=== PATIENT | female | born 1965 | race African-American/Black ===

== ENCOUNTER → 2016-09-06 | Outpatient (CLI) | payer BC ==
[2016-09-06 14:53] LABS: Basophils % (A) 1 %; CH 30.5; CHCM 32.5; Eosinophils # (A) 0.2 k/uL (0-0.7); Eosinophils % (A) 3 %; HCT 42.1 % (34.0-46.0); HDW 2.25; HGB 13.3 gm/dL (11.4-16.0); Luc # (Auto) 0.14; Luc % (Auto) 2; Lymphocytes # (A) 1.7 k/uL (1.0-4.8); Lymphocytes % (A) 26 %; MCH 29.8 pg (25.0-35.0); MCHC 31.7 g/dL (31.0-37.0); MCV 94.1 fL (80.0-100.0); Mean Platelet Volume 8.4; Monocytes # (A) 0.3 k/uL (0-1.0); Monocytes % (A) 5 %; Neutrophils # (A) 4.1 k/uL (1.3-7.7); Neutrophils % (A) 64 %; RBC 4.47 m/uL (3.80-5.40); RDW 13.3 % (11.5-15.5); WBC 6.4 k/uL (3.8-10.6); WBC (Perox) 6.69
[2016-09-06 15:02] LABS: ALT 39 U/L (9-52); AST 17 U/L (14-36); Alkaline Phosphatase 115 U/L (38-126); Anion Gap 8 mmol/L; Blood Urea Nitrogen 11 mg/dL (7-17); Calcium 9.7 mg/dL (8.4-10.2); Carbon Dioxide 31 mmol/L (22-30); Chloride 102 mmol/L (98-107); Glucose 106 mg/dL (74-99); Non-African American GFR(MDRD) >60 (>60 ml/min/1.73 sqM); Potassium 3.6 mmol/L (3.5-5.1); Sodium 141 mmol/L (137-145); Total Bilirubin 0.4 mg/dL (0.2-1.3); Total Protein 7.4 g/dL (6.3-8.2)
== END | disposition home or self-care (01) ==
LOC: LABPAT 14:24
PROVIDERS: ATTEND Obstetrics & Gynecology
DX: Z01.812 Encounter for preprocedural laboratory examination (principal)
CPT/HCPCS: 80053; 85025; 86850; 86900; 86901

== ENCOUNTER → 2016-09-06 | Outpatient (CLI) | payer BC ==
--- NOTE | 2016-09-06 14:23 | XR ---
EXAMINATION TYPE: XR chest 2V DATE OF EXAM: 09/06/2016 2:19 PM COMPARISON: NONE HISTORY: Shortness of breath TECHNIQUE: Frontal and lateral views of the chest are obtained. FINDINGS: Scattered senescent parenchymal changes noted. Hyperinflation compatible with COPD. No evidence for infiltrate. No evidence for atelectasis. Heart size is stable. Mediastinal structures are stable and grossly unremarkable. No evidence for hilar prominence. Degenerative changes dorsal spine. IMPRESSION: 1. No evidence for acute pulmonary disease.
== END | disposition home or self-care (01) ==
LOC: RADXRMAIN 14:04
PROVIDERS: ATTEND Family Medicine
DX: Z01.818 Encounter for other preprocedural examination (principal); J44.9 Chronic obstructive pulmonary disease, unspecified
CPT/HCPCS: 71020

== ENCOUNTER 2016-09-13 06:01 | Observation (INO) | payer BC ==
[2016-09-02 14:47] VITALS: BMI 28.8
--- NOTE | 2016-09-12 11:46 | P.HPOB ---
History of Present Illness H&P Date: 09/12/16 Chief Complaint: MEnorrhagia 51 year old presents for [facility] BSO with da irma. She has menorrhagia and severe pelvic discomfort due to a fibroid uterus. Review of Systems All systems: negative Constitutional: Denies chills, Denies fever Eyes: denies blurred vision, denies pain Ears, nose, mouth and throat: Denies headache, Denies sore throat Cardiovascular: Denies chest pain, Denies shortness of breath Respiratory: Denies cough Gastrointestinal: Denies abdominal pain, Denies diarrhea, Denies nausea, Denies vomiting Genitourinary: Denies dysuria, Denies hematuria Musculoskeletal: Denies myalgias Integumentary: Denies pruritus, Denies rash Neurological: Denies numbness, Denies weakness Psychiatric: Denies anxiety, Denies depression Endocrine: Denies fatigue, Denies weight change Past Medical History Past Medical History: COPD, Hypertension, Musculoskeletal Disorder, Seizure Disorder Additional Past Medical History / Comment(s): back & sciatic problems, Raynaud's , last seizure October 2015 History of Any Multi-Drug Resistant Organisms: None Reported Past Surgical History: Section, Cholecystectomy, Tubal Ligation Past Anesthesia/Blood Transfusion Reactions: No Reported Reaction Past Psychological History: Anxiety Smoking Status: Current every day smoker Past Alcohol Use History: Rare Additional Past Alcohol Use History / Comment(s): down to 5 cigs/day, smoked off & on 30 yrs. Past Drug Use History: Marijuana Additional Drug Use History / Comment(s): occasional use - Past Family History Father Family Medical History: Cancer Medications and Allergies Home Medications Medication Instructions Recorded Confirmed Type Acetaminophen Tab [Tylenol Tab] 500 mg PO Q6H PRN 09/02/16 09/02/16 History Acetaminophen/Diphenhydramine 1 each PO HS 09/02/16 09/02/16 History [Tylenol PM Extra Strength] Furosemide [Lasix] 20 mg PO DAILY 09/02/16 09/02/16 History Tussin Dm(Assured) PO Q4H PRN 09/02/16 History levETIRAcetam [Keppra] 750 mg PO Q12HR 09/02/16 09/02/16 History Allergies Allergy/AdvReac Type Severity Reaction Status Date / Time No Known Allergies Allergy Verified 09/02/16 14:37 Exam Osteopathic Statement: *. No significant issues noted on an osteopathic structural exam other than those noted in the History and Physical/Consult. Assessment and Plan (1) Fibroid uterus Status: Acute (2) Menorrhagia with irregular cycle Status: Acute Plan: 1. [facility] BSO with da irma possible laparotomy
[~2016-09-13 06:01] MED LIST: DEXAMETHASONE SOD PHOSPHATE 10 MG/ML 1 ML VIAL IV ONE; HYDROmorphone 1 MG/ML 1 ML SYRINGE IVP PRN; LIDOCAINE 1% 20 ML VIAL (10MG/ML) FOR IV START INTRADERMA PRN; ONDANSETRON 4 MG/2 ML VIAL IVP ONE; SCOPOLAMINE 1.5MG/72HR PATCH TRANSDERM ONE; ceFAZolin 2 GM in SODIUM CHLORIDE 0.9% 100 ML IVPB ONE
[2016-09-13] MEDS: LACTATED RINGERS 1,000 ML IV SCH ×3 (06:37→10:49)
[2016-09-13] MEDS ORDERED: LIDOCAINE 1% 20 ML VIAL (10MG/ML) FOR IV START INTRADERMA ONE ×2 (06:38→06:39)
[2016-09-13] MEDS ORDERED: ROCURONIUM BROMIDE 10 MG/ML 10 ML VIAL IV ONE (07:14)
[2016-09-13] MEDS ORDERED: SUCCINYLCHOLINE CHLORIDE 100 MG/5 ML SYR IV ONE (07:14)
[2016-09-13] MEDS ORDERED: MIDAZOLAM 2 MG/2 ML VIAL ONE (07:14)
[2016-09-13] MEDS ORDERED: HYDROmorphone (PF) 1 MG/ML ONE (07:14)
[2016-09-13] MEDS ORDERED: fentaNYL (PF) 50 MCG/ML 2 ML AMP ONE (07:14)
[2016-09-13] MEDS ORDERED: PROPOFOL 10 MG/ML 20 ML VIAL IV ONE (07:14)
[2016-09-13] MEDS ORDERED: GLYCOPYRROLATE 0.2 MG/ML 2 ML VIAL ONE (07:14)
[2016-09-13] MEDS ORDERED: NEOSTIGMINE 1 MG/ML 10 ML VIAL ONE (07:14)
[2016-09-13] MEDS ORDERED: LIDOCAINE 1% INJ 10MG/ML (20 ML MDV) ONE (07:14)
[2016-09-13] MEDS ORDERED: BUPIVACAINE (PF) 0.25% 30 ML VIAL SQ ONE ×2 (07:43→08:44)
--- NOTE | 2016-09-13 09:07 | P.OP ---
Date of Procedure: 09/13/16 Preoperative Diagnosis: 1. menorrhagia with irregular cycle 2. fibroid uterus Postoperative Diagnosis: 1. menorrhagia with irregular cycle 2. fibroid uterus Procedure(s) Performed: Total laparoscopic hysterectomy and bilateral salpingo-oophorectomy and lysis of adhesions with da Tiera robot Anesthesia: MARGARET Surgeon: Jenni Mclaughlin Charger Operator Helper #1: Calvin Landis Estimated Blood Loss (ml): 15 IV fluids (ml): 950 Urine output (ml): 95 Pathology: other (Uterus cervix bilateral tubes and ovaries) Condition: stable Disposition: PACU Operative Findings: Fibroid uterus, normal tubes and ovaries, omental adhesions to the anterior abdominal wall near the uterus. Description of Procedure: Patient taken the operating room where general anesthesia was obtained without difficulty. She is prepped and draped in normal sterile fashion dorsal lithotomy position, legs placed in the Nnamdi stirrups. Weighted speculum placed in the vagina and the anterior lip the cervix was grasped with single- tooth tenaculum. The uterus sounded to 9 cm and the cervix diameter was 3 cm. The appropriate manipulator tip and ring were placed on the Tyesha manipulator. The Tyesha manipulator was then placed in the uterus. Munguia catheter was also placed. Attention was then turned to the abdomen and gloves were changed. A 5 mm supraumbilical incision was made the scalpel and a 5 mm optical trocar was placed under direct visualization. 10 cm to the right of this and 2 cm down a 5 mm incision was made and 8 mm da Tiera port was placed under direct visualization. Same measurements on the opposite side of the patient's abdomen , the 5 mm incision was made and 8 mm da Tiera port was placed under direct visualization. In the left upper quadrant a 10 mm incision was made and a 10 mm optical trocar was placed under direct visualization. The 5 mm optical trocar was then replaced with the 8 mm da Tiera camera port. The robot was docked on patient's right side. The camera was introduced and then the monopolar curved scissor and [place] bipolar placed under direct visualization. I broke scrub and went to the physician console. Some omental adhesions were that were to the anterior abdominal wall down to the uterus were taken down using the monopolar curved scissors. Survey of the pelvis revealed a fibroid uterus and normal bilateral tubes and ovaries. The left infundibulopelvic ligament was cauterized with the [place] bipolar and cut with monopolar curved scissors. The left round ligament was cauterized with the [place] bipolar and cut with monopolar curved scissors. The posterior leaf of the broad ligament was taken down using the monopolar curved scissors. Anterior leaf of the broad ligament was then taken down using the monopolar curved scissors. The uterine artery was cauterized with the [place] bipolar and cut with monopolar curved scissors. The bladder flap was then started using the monopolar curved scissors. Attention was then turned to the right side of the patient's anatomy and the right infundibular pelvic ligament was cauterized with the [place] bipolar and cut with monopolar curved scissors. The right round ligament was cauterized with the [place] bipolar and cut with monopolar curved scissors. Posterior leaf of the broad ligament was taken down using the monopolar curved scissors and the anterior leaf was taken down using the monopolar curved scissors. The uterine artery was cauterized the [place] bipolar cut with monopolar curved scissors. The bladder flap was then finished on this side. Anterior colpotomy was made using the monopolar curved scissors. The rest of the uterus was from the vaginal cuff by following the ring around with the monopolar curved scissors through the uterosacral ligaments back to the anterior portion. Once the uterus and cervix were amputated they were pulled through the vaginal cuff. Hemostasis was assured. The instruments were changed for the Cardier forcep and the aliyah suture cut. The vaginal cuff was then closed using O stratafix barbed suture in a running fashion. Hemostasis was again assured and the pelvis was irrigated. All instruments were removed from the abdomen and the robot was undocked. I scrubbed back in to perform a cystoscopy. There were jets from both ureteral orifices. The abdominal incisions were closed with 4-0 Vicryl in a subcuticular fashion. Patient tolerated the procedure well, sponge and instrument counts correct 2 and she was taken to recovery room in stable condition condition
[2016-09-13] MEDS ORDERED: LACTATED RINGERS 1,000 ML IV ONE (09:41)
[2016-09-13] MEDS ORDERED: Acetaminophen-Codeine 300-30mg TAB PO PRN (10:14)
[2016-09-13] MEDS ORDERED: SIMETHICONE 80 MG CHEWABLE PO PRN (10:14)
[2016-09-13] MEDS ORDERED: diphenhydrAMINE 50 MG/ML 1 ML VIAL IVP PRN (10:14)
[2016-09-13] MEDS ORDERED: ONDANSETRON 4 MG/2 ML VIAL IVP PRN (10:14)
[2016-09-13] MEDS ORDERED: IBUPROFEN 600 MG TAB PO PRN (10:14)
[2016-09-13] MEDS ORDERED: METOCLOPRAMIDE 5 MG/ML 2 ML VIAL IVP PRN (10:14)
[2016-09-13] MEDS: KETOROLAC 30 MG/ML 1 ML VIAL IVP PRN ×3 (11:02→23:35)
[2016-09-13] MEDS ORDERED: levETIRAcetam 250 MG TAB PO SCH (11:15)
[2016-09-13] MEDS: Acetaminophen-Codeine 300-30mg TAB PO PRN ×2 (14:30→20:52)
[2016-09-13] MEDS: SENNOSIDES-DOCUSATE SODIUM 1 EACH TAB PO SCH (20:55)
[2016-09-14 06:55] LABS: Basophils % (A) 0 %; CH 30.2; CHCM 32.7; Eosinophils % (A) 0 %; HCT 36.4 % (34.0-46.0); HGB 11.7 gm/dL (11.4-16.0); Luc # (Auto) 0.12; Luc % (Auto) 1; Lymphocytes # (A) 1.8 k/uL (1.0-4.8); Lymphocytes % (A) 14 %; MCH 29.8 pg (25.0-35.0); MCHC 32.1 g/dL (31.0-37.0); MCV 92.8 fL (80.0-100.0); Mean Platelet Volume 8.9; Monocytes # (A) 0.6 k/uL (0-1.0); Monocytes % (A) 4 %; Neutrophils # (A) 10.5 k/uL (1.3-7.7); Neutrophils % (A) 81 %; RBC 3.92 m/uL (3.80-5.40); RDW 13.6 % (11.5-15.5); WBC (Perox) 13.64
--- NOTE | 2016-09-14 08:00 | P.DS ---
Providers Date of admission: 09/14/16 05:04 Expected date of discharge: 09/14/16 Attending physician: Jenni Mclaughlin Primary care physician: Stated None - Discharge Diagnosis(es) (1) Fibroid uterus Current Visit: Yes Status: Resolved (2) Menorrhagia with irregular cycle Current Visit: Yes Status: Resolved (3) History of robot-assisted laparoscopic hysterectomy Current Visit: Yes Status: Acute Hospital Course: Patient presented for [facility] BSO with da irma. She underwent this procedure without complication. Her pain is controlled with po meds and she is tolerating a regular diet. Denies N/V, F/C, CP, SOB, calf pain. Incisions are C/D/I and very little vaginal bleeding. She will be discharged home POD #2 in stable condition to follow up with me in 3 weeks. Plan - Discharge Summary New Discharge Prescriptions: Acetaminophen-Codeine 300-30mg [Tylenol #3] 2 tab PO Q6H PRN #30 tablet PRN Reason: Pain Ibuprofen [Motrin] 600 mg PO Q6HR PRN #30 tab PRN Reason: Mild Pain Or Fever >= 100.5 Discharge Medication List Acetaminophen Tab [Tylenol Tab] 500 mg PO Q6H PRN 09/02/16 [History] Acetaminophen/Diphenhydramine [Tylenol PM Extra Strength] 1 tab PO HS 09/02/16 [ History] Furosemide [Lasix] 20 mg PO DAILY 09/02/16 [History] Tussin Dm(Assured) 10 ml PO Q6H PRN 09/02/16 [History] levETIRAcetam [Keppra] 750 mg PO Q12HR 09/02/16 [History] Acetaminophen-Codeine 300-30mg [Tylenol #3] 2 tab PO Q6H PRN #30 tablet [Rx] Ibuprofen [Motrin] 600 mg PO Q6HR PRN #30 tab 09/14/16 [Rx] Follow up Appointment(s)/Referral(s): Jenni Mclaughlin DO [Doctor of Osteopathic Medicine] - 3 Weeks Patient Instructions/Handouts: Laparoscopic Hysterectomy (DC)
[2016-09-14] MEDS: SENNOSIDES-DOCUSATE SODIUM 1 EACH TAB PO SCH (08:39)
[2016-09-14 08:40] VITALS: BP 117/79; PULSE 75; RESP 16; TEMP 97.9
[2016-09-14] MEDS ORDERED: FUROSEMIDE 20 MG TAB PO SCH (09:00)
== END 2016-09-14 09:15 | disposition home or self-care (01) ==
LOC: OR 06:01 → 6PED 08:50 → OR 09-14 05:04 → 6PED 09-14 05:04
PROVIDERS: ADMIT Obstetrics & Gynecology; ATTEND Obstetrics & Gynecology
DX: D25.9 Leiomyoma of uterus, unspecified (principal); K66.0 Peritoneal adhesions (postprocedural) (postinfection); N92.0 Excessive and frequent menstruation with regular cycle; J44.9 Chronic obstructive pulmonary disease, unspecified; I10 Essential (primary) hypertension; I73.00 Raynaud's syndrome without gangrene; G40.909 Epilepsy, unspecified, not intractable, without status epilepticus; F41.9 Anxiety disorder, unspecified; F17.210 Nicotine dependence, cigarettes, uncomplicated; Z79.899 Other long term (current) drug therapy
CPT/HCPCS: 49329; 58571; S2900; 81025; 85025; 86850; 86900; 86901; 88307; 88342

== ENCOUNTER → 2022-06-02 | Outpatient (CLI) | payer OTHER ==
[2022-06-02 14:30] LABS: HCT 40.3 % (37.2-46.3); HGB 13.9 g/dL (12.0-15.0); MCH 31.9 pg (27.0-32.0); MCHC 34.5 g/dL (32.0-37.0); MCV 92.4 fL (80.0-97.0); Mean Platelet Volume 11.5 fL (9.5-12.2); NRBC Per 100 WBC 0 /100 WBCS (0.0-0.0); Platelet Count 201 X 10*3/uL (140-440); RBC 4.36 X 10*6/uL (4.10-5.20); RDW 12.8 % (11.5-14.5); WBC 7.05 X 10*3/uL (4.50-10.00)
[2022-06-02 14:45] LABS: African American GFR (CKD) 88.1 (60.0-200.0); Anion Gap 8.6 mmol/L (10.00-18.00); Blood Urea Nitrogen 16.1 mg/dL (9.0-27.0); Carbon Dioxide 30.6 mmol/L (20.0-27.5); Non-African American GFR(CKD) 76.1 (60.0-200.0); Potassium 3.8 mmol/L (3.5-5.5)
== END | disposition home or self-care (01) ==
LOC: LABPAT 09:56
PROVIDERS: ATTEND Internal Medicine
DX: Z01.812 Encounter for preprocedural laboratory examination (principal); R07.2 Precordial pain
CPT/HCPCS: 36415; 80051; 82565; 84520; 85027

== ENCOUNTER 2022-06-10 07:57 | Day surgery (SDC) | payer OTHER ==
[2022-06-09 09:58] VITALS: BMI 30.9
[~2022-06-10 07:57] MED LIST changes: +ALPRAZolam 0.25 MG TAB PO PRN; +ALPRAZolam 0.5 MG TAB PO PRN; +ASPIRIN 325 MG TAB PO ONE; +ATORVASTATIN 80 MG TAB PO ONE; -DEXAMETHASONE SOD PHOSPHATE 10 MG/ML 1 ML VIAL IV ONE; +HEPARIN SODIUM,PORCINE 10,000 UNIT in SODIUM CHLORIDE 0.9% 1,000 ML IRRIGATION PRN; +HEPARIN SODIUM,PORCINE 2,500 UNIT in SODIUM CHLORIDE 0.9% 250 ML IRRIGATION PRN; -HYDROmorphone 1 MG/ML 1 ML SYRINGE IVP PRN; -LIDOCAINE 1% 20 ML VIAL (10MG/ML) FOR IV START INTRADERMA PRN; +NITROGLYCERIN SL TABS 0.4 MG TAB SUBLINGUAL PRN; -ONDANSETRON 4 MG/2 ML VIAL IVP ONE; -SCOPOLAMINE 1.5MG/72HR PATCH TRANSDERM ONE; -ceFAZolin 2 GM in SODIUM CHLORIDE 0.9% 100 ML IVPB ONE
[2022-06-10] MEDS: SODIUM CHLORIDE 0.9% 1,000 ML in EMPTY BAG 1 BAG IV SCH ×2 (08:32→19:20)
[2022-06-10] MEDS ORDERED: VERAPAMIL 2.5 MG/ML 2 ML AMP ONE (09:25)
[2022-06-10] MEDS ORDERED: HEPARIN SODIUM 1,000 UN/ML (10ML VL) ONE (09:25)
[2022-06-10] MEDS ORDERED: fentaNYL (PF) 50 MCG/ML 2 ML AMP ONE (09:26)
[2022-06-10] MEDS ORDERED: MIDAZOLAM 2 MG/2 ML VIAL IV ONE (09:42)
[2022-06-10] MEDS ORDERED: fentaNYL (PF) 50 MCG/ML 2 ML AMP IV ONE (09:42)
[2022-06-10] MEDS ORDERED: LIDOCAINE 1% INJ 10MG/ML (30 ML VIAL-PF) SQ ONE (09:44)
[2022-06-10] MEDS ORDERED: VERAPAMIL SYRINGE (5 MG/10 ML) INTRAARTER ONE (09:45)
[2022-06-10] MEDS: HEPARIN SODIUM 1,000 UN/ML (10ML VL) IV ONE ×4 (09:48→10:33)
[2022-06-10] MEDS: NITROGLYCERIN 1000MCG/10ML SYRINGE INTRAARTER ONE ×8 (09:58→10:43)
[2022-06-10] MEDS ORDERED: CLOPIDOGREL 75 MG TAB ONE (09:59)
[2022-06-10] MEDS ORDERED: CLOPIDOGREL 75 MG TAB PO ONE (10:02)
[2022-06-10] MEDS ORDERED: IOPAMIDOL-370 100ML BTL INJ ONE ×2 (10:11→10:46)
[2022-06-10] MEDS ORDERED: ACETAMINOPHEN TAB 325 MG TAB PO STA (15:23)
--- NOTE | 2022-06-10 19:53 | P.PRCINT ---
Percutaneous Coronary Int. - Percutaneous Coronary Intervention Percutaneous Coronary Intervention: PROCEDURES PERFORMED: Left heart catheterization, bilateral coronary angiography, PCI proximal PDA with overlapping 3.0 x 18mm Xience KIRAN and 2.0 x 12mm Mina KIRAN, post dilated proximally with a 3.5 NC balloon, balloon a ngioplasty superior PDA side branch with a 2.0 balloon INDICATION: Abnormal stress test, chest pain at rest concerning for unstable angina CONSENT:I have discussed the risks, benefits and alternative therapies for the above-mentioned procedure and for both sedation/analgesia as well as necessary blood product administration, if indicated, as they pertain to this patient. The patient has indicated understanding and acceptance of the risks and procedures discussed. PROCEDURE: After the risks, benefits and alternatives of the above mentioned procedure explained in detail with the patient, informed consent was obtained. Patient was taken to the catheterization lab and prepped and draped in usual fashion. 1% lidocaine was used to anesthetize the right radial artery. A 6- Upper Sorbian sheath was placed in the right radial artery using modified Seldinger technique. Left coronary angiography was performed with a 5-Upper Sorbian JL 3.5 catheter and right coronary angiography was performed with a 5-Upper Sorbian JR5 catheter in various views. A 5-Upper Sorbian FR5 catheter was inserted into the left ventricle and pressure measurements were obtained. The decision was made to perform PCI of the PDA. Heparin was given for ACT > 250. A 6FR AL 0.75 guide was used to engage the RCA. A 0.014 BMW wire was advanced into the distal PDA. Pre dilation was attempted with 2.5 x 12 and 3.0 x 15 balloons however significant watermelloning and therefore predilation was performed with a 3.0 x 15mm Angiosculpt cutting balloon. Next a 3.0 x 18mm Xience KIRAN was placed. There was more distal dissection noted and therefore balloon angioplasty was performed of the side branch with a 2.0 balloon and then an additional 2.0 x 12mm Theodore KIRAN was placed. The proximal portion of the stent was post dilated with a 3.5 NC balloon. The wire was pulled and final angiogram was performed. Pre intervention there was 95% stenosis and CLAIRE 3 flow and post intervention there was <10% stenosis and CLAIRE 3 flow. The right radial sheath was removed and a TR band was placed with hemostasis achieved. The patient tolerated the procedure well. Patient was transported back to the post catheterization holding area in stable condition. Conscious Sedation: Patient was monitored under the direct supervision of vision of myself for conscious sedation using Versed and fentanyl for a total duration of 61 minutes HEMODYNAMICS: Aortic: 131/73 LV: 133/1, LVEDP 14 SELECTIVE CORONARY ARTERIOGRAPHY: LEFT MAIN: The left main is a large caliber vessel which bifurcates into the LAD and circumflex. There is distal left main 10% stenosis. LEFT ANTERIOR DESCENDING CORONARY ARTERY: LAD is a large caliber vessel which wraps around to the apex. There is a mid LAD 50% stenosis at the level of a moderate caliber diagonal 2 branch with ostial diagonal 2 40% stenosis. Otherwise there are mild luminal irregularities. LEFT CIRCUMFLEX CORONARY ARTERY: Left circumflex is a moderate caliber vessel without significant stenosis. RIGHT CORONARY ARTERY: The right coronary artery is a large caliber vessel which gives off a PDA and PLV branch and is the dominant vessel. There is a proximal RCA 30% stenosis. The proximal PDA has a tandem 95% and 90% stenoses. FINAL IMPRESSION: 1. CAD as described above including PDA 95% stenosis, left main, 10% stenosis, mid LAD 50% stenosis. 2. S/p PCI proximal PDA with overlapping 3.0 x 18mm Xience KIRAN and 2.0 x 12mm Theodore KIRAN, post dilated proximally with a 3.5 NC balloon 3. Normal left sided filling pressures PLAN: 1. Aggressive risk factor modification per most recent ACC/AHA guidelines. 2. Continue dual antiplatelets for 12 months with aspirin and Plavix
[2022-06-10] MEDS ORDERED: METOPROLOL SUCCINATE (ER) 25 MG TAB.ER.24H PO SCH (21:00)
[2022-06-10] MEDS ORDERED: MELATONIN 3 MG TABLET PO SCH (21:00)
[2022-06-10] MEDS: GABAPENTIN 300 MG CAP PO SCH (21:37)
[2022-06-11 06:58] VITALS: PULSE 58
[2022-06-11 08:26] VITALS: BP 128/79; RESP 18; TEMP 98.2
[2022-06-11] MEDS: SODIUM CHLORIDE 0.9% 1,000 ML in EMPTY BAG 1 BAG IV SCH (08:29)
[2022-06-11] MEDS ORDERED: CLOPIDOGREL 75 MG TAB PO SCH (09:00)
[2022-06-11] MEDS ORDERED: methIMAzole 5 MG TAB PO SCH (09:00)
[2022-06-11] MEDS ORDERED: ATORVASTATIN 40 MG TAB PO SCH (09:00)
[2022-06-11] MEDS ORDERED: FERROUS SULFATE 325 MG TAB PO SCH (09:00)
[2022-06-11] MEDS ORDERED: ASPIRIN 81 MG PO SCH (09:00)
[2022-06-11] MEDS ORDERED: FUROSEMIDE 20 MG TAB PO SCH (09:00)
[2022-06-11] MEDS ORDERED: CYANOCOBALAMIN 500 MCG TAB PO SCH (09:00)
[2022-06-11] MEDS ORDERED: hydroCHLOROthiazide 12.5 MG CAP PO SCH (09:00)
[2022-06-11] MEDS ORDERED: LOSARTAN 50 MG TAB PO SCH (09:00)
[2022-06-11] MEDS: GABAPENTIN 300 MG CAP PO SCH (09:02)
--- NOTE | 2022-06-11 10:21 | P.DS ---
Providers Attending physician: Fabricio Streeter DO Primary care physician: Ciro Tate [facility] Course: This is a 57-year-old female who underwent cardiac catheterization with Dr. Streeter revealing coronary artery disease including 95% PDA stenosis, left main 10% stenosis, and mid LAD 50% stenosis. Patient underwent stenting of the proximal PDA with overlapping 3.0 x 18mm Xience KIRAN and 2.0 x 12mm [place] KIRAN, post dilated proximally with a 3.5 NC balloon. Patient is doing well post pro cedure. She denies any chest pain or shortness of breath. Vital signs are stable. She was deemed stable for discharge home today per Dr. Streeter. Please see EMR for further hospital course details. Discharge diagnosis Coronary artery disease, status post stenting Nurse practitioner note has been reviewed by physician. Signing provider agrees with the documented findings, assessment, and plan of care. Plan - Discharge Summary Discharge Rx Participant: No New Discharge Prescriptions: New Aspirin 81 mg PO DAILY #90 tab Clopidogrel [Plavix] 75 mg PO DAILY #90 tablet Continue levETIRAcetam [Keppra] 750 mg PO Q12HR Atorvastatin [Lipitor] 40 mg PO DAILY rOPINIRole HCL [Requip] 0.25 mg PO HS Melatonin 3 mg PO HS Cyanocobalamin (Vitamin B-12) [Vitamin B-12] 1,000 mcg PO DAILY methIMAzole [Tapazole] 5 mg PO TUFR Ergocalciferol [Vitamin D2 (1250 Mcg = 63116 Iu)] 1,250 mcg PO TU Metoprolol Succinate (ER) [Toprol XL] 25 mg PO HS Furosemide [Lasix] 20 mg PO DAILY Losartan/Hydrochlorothiazide [Losartan-Hctz 100-12.5 mg Tab] 1 tab PO DAILY Colchicine [Colcrys] 0.6 mg PO DIRECTED PRN PRN Reason: Edema Ferrous Sulfate [Iron (65 MG Elemental)] 325 mg PO DAILY Colchicine [Mitigare] 0.6 mg PO DIRECTED PRN PRN Reason: gout Discontinued Aspirin 325 mg PO DAILY Discharge Medication List levETIRAcetam [Keppra] 750 mg PO Q12HR 09/02/16 [History] Atorvastatin [Lipitor] 40 mg PO DAILY 06/09/22 [History] Colchicine [Colcrys] 0.6 mg PO DIRECTED PRN 06/09/22 [History] Colchicine [Mitigare] 0.6 mg PO DIRECTED PRN 06/09/22 [History] Cyanocobalamin (Vitamin B-12) [Vitamin B-12] 1,000 mcg PO DAILY 06/09/22 [History] Ergocalciferol [Vitamin D2 (1250 Mcg = 70086 Iu)] 1,250 mcg PO TU 06/09/22 [History] Ferrous Sulfate [Iron (65 MG Elemental)] 325 mg PO DAILY 06/09/22 [History] Furosemide [Lasix] 20 mg PO DAILY 06/09/22 [History] Losartan/Hydrochlorothiazide [Losartan-Hctz 100-12.5 mg Tab] 1 tab PO DAILY 06/09/22 [History] Melatonin 3 mg PO HS 06/09/22 [History] Metoprolol Succinate (ER) [Toprol XL] 25 mg PO HS 06/09/22 [History] methIMAzole [Tapazole] 5 mg PO TUFR 06/09/22 [History] rOPINIRole HCL [Requip] 0.25 mg PO HS 06/09/22 [History] Aspirin 81 mg PO DAILY #90 tab 06/11/22 [Rx] Clopidogrel [Plavix] 75 mg PO DAILY #90 tablet 06/11/22 [Rx] Follow up Appointment(s)/Referral(s): Fabricio Streeter DO [STAFF PHYSICIAN] - 06/15/22 1:15 pm (APPOINTMENT MADE ON May @ 1:15PM ) Patient Instructions/Handouts: Moderate Sedation (DC), After Radial Heart Catheterization (GEN) Activity/Diet/Wound Care/Special Instructions: *NO LIFTING, PUSHING, OR PULLING ANYTHING OVER 5 POUNDS FOR 5 DAYS *NO DRIVING FOR 3 DAYS *YOU CAN REMOVE YOUR DRESSING TOMORROW AND SHOWER AT THAT TIME. DO NOT SUBMERSE YOUR PUNCTURE SITE IN WATER FOR A FEW DAYS TO PREVENT INFECTION - SO NO TUB BATHS, POOLS, HOT TUBS, DISHES...ETC *ANY SIGNS OF BLEEDING (HARDNESS, SWELLING, OR EXCESSIVE BRUISING) HOLD DIRECT PRESSURE ON YOUR PUNCTURE SITE AND COME TO THE NEAREST EMERGENCY ROOM TO GET YOUR PUNCTURE SITE LOOKED AT - DO NOT DRIVE YOURSELF! EITHER CALL EMS OR HAVE SOMEONE DRIVE YOU!
[2022-06-15] MEDS ORDERED: ERGOCALCIFEROL 1,250 MCG (50,000 IU) CAPSULE PO SCH (09:00)
== END 2022-06-11 10:20 | disposition home or self-care (01) ==
LOC: CATHCVL 07:57 → 6NMEDSUR 10:45 → CATHCVL 06-11 10:20
PROVIDERS: ATTEND Internal Medicine
DX: I25.10 Atherosclerotic heart disease of native coronary artery without angina pectoris (principal); R06.02 Shortness of breath; I10 Essential (primary) hypertension; E78.5 Hyperlipidemia, unspecified; F17.200 Nicotine dependence, unspecified, uncomplicated; M10.9 Gout, unspecified; Z79.82 Long term (current) use of aspirin; Z79.899 Other long term (current) drug therapy; Z95.5 Presence of coronary angioplasty implant and graft
CPT/HCPCS: 93458; C1769 ×3; C9600; C1887; C1894; C1725 ×5; C1874 ×2; J2250; J2001; J3010; J1644; Q9967

== ENCOUNTER → 2024-02-17 | Outpatient (CLI) | payer MEDICARE, OTHER ==
--- NOTE | 2024-02-17 11:38 | US ---
EXAMINATION TYPE: US liver DATE OF EXAM: 02/17/2024 COMPARISON: NONE CLINICAL INDICATION: Female, 58 years old with history of R74.01 ELEVAT LIVER TRANSAMINASE LEVEL; Noreen vated LFT's, GB removed TECHNIQUE: Multiple sonographic images of the right upper quadrant are obtained. FINDINGS: EXAM MEASUREMENTS: Liver Length: 15.8 cm CBD: 1.1 cm Right Kidney: 8.3 x 4.5 x 4.0 cm Pancreas: 4mm panc duct visualized, tail obscured by overlying bowel gas Liver: Visualized mostly intercostally, limited views show no abnormality at this time Gallbladder: Surgically absent Evidence for sonographic Buenrostro's sign: No CBD: Slightly dilated for post marco a Right Kidney: Small in size with cortical thinning IMPRESSION: 1. Limited evaluation of the liver and pancreas. 2. 4 mm prominent pancreatic duct. 3. Cholecystectomy 4. Right renal atrophy
== END | disposition home or self-care (01) ==
LOC: RADUSWWP 08:47
PROVIDERS: ATTEND Internal Medicine
DX: R74.01 Elevation of levels of liver transaminase levels (principal); N26.1 Atrophy of kidney (terminal)
CPT/HCPCS: 76705